=== PATIENT | female | born 2000 | race Caucasian/White ===

== ENCOUNTER 2023-12-07 10:44 | Emergency (ER) | payer OTHER, SELFPAY ==
[2023-12-07 10:49] VITALS: BP 126/89; TEMP 36.5; O2SAT 99; BMI 31.7
--- NOTE | 2023-12-07 11:14 | ED.EAR1 ---
HPI - Ear Problem General Chief complaint: Urogenital-Female Stated complaint: EAR PAIN BOTH Time Seen by Provider: 12/07/23 11:00 Source: patient Mode of arrival: walk-in Limitations: no limitations History of Present Illness HPI Narrative: The patient initially presented with bilateral ear pain and she has been trying multiple [id number] cleaning, she thought that she had a lot of wax but she thinks that she still feels like there is something in her ear and she cannot hear well, she did mention having runny nose a few days before this happened. The patient also want to be tested for STDs since she is in the ER and she does not have any symptoms Related Data Home Medications ?Medication ?Instructions ?Recorded ?Confirmed etonogestrel 0.12 mg-ethinyl vag ring vaginal .qmonth 12/07/23 estradiol 0.015 mg/24 hr vaginal ring Previous Rx's ?Medication ?Instructions ?Recorded amoxicillin 500 mg capsule 500 mg PO Q8H #15 caps 12/07/23 fluconazole 150 mg tablet 150 mg PO ONCE #1 tab 12/07/23 fluticasone propionate 50 1 spray intranasal BID #16 grams 12/07/23 mcg/actuation nasal spray,suspension (Flonase Allergy Relief) loratadine 10 mg tablet (Claritin) 10 mg PO DAILY PRN nasal 12/07/23 congestion #10 tabs Allergies Allergy/AdvReac Type Severity Reaction Status Date / Time Sulfa (Sulfonamide Allergy Hives Verified 12/07/23 10:49 Antibiotics) Review of Systems ROS Status of ROS 10 or more systems reviewed and unremarkable except as noted in history and below Exam Narrative Exam Narrative: Nurses notes and vital signs reviewed and patient is not hypoxic. General: Well-appearing and in no apparent distress. Skin: Warm, dry, no pallor noted. No rash. Head: Normocephalic, atraumatic. Neck: Supple, non-tender. Eye: Pupils are equal, round and EOMI. No scleral icterus. Ears, Nose, Mouth, and Throat: Both tympanic membranes are red with congestion and bulging with a nasal mucosa mildly erythematous ,. Oral mucosa is moist, Cardiovascular: Regular Rate and Rhythm without murmur, gallop or rub. Respiratory: No accessory muscle use or respiratory distress. Lungs are clear to auscultation, no wheezing, rales or rhonchi Chest Wall: no tenderness Back: No midline thoracic or lumbar vertebral tenderness. No CVA tenderness Musculoskeletal: normal ROM, no calf or popliteal tenderness, no lower extremity edema/swelling GI: Abdomen is soft, non-distended. Normal bowel sounds. No masses appreciated. No tenderness to palpation. No rebound, guarding, or rigidity noted. Neurological: A&O x4. No cranial nerve dysfunction observed. No truncal ataxia. Moves all extremities. Sensation intact. Psychiatric: Cooperative and interactive. Normal mood and affect. Constitutional Vital Signs, click to edit/add: Last Vital Signs Temp 97.7 F 12/07/23 10:49 Resp 20 12/07/23 10:49 BP 126/89 12/07/23 10:49 Pulse Ox 99 12/07/23 10:49 O2 Del Method Room Air 12/07/23 10:49 Course Vital Signs Vital signs: Vital Signs Temperature 97.7 F 12/07/23 10:49 Respiratory Rate 20 12/07/23 10:49 Blood Pressure 126/89 12/07/23 10:49 Pulse Oximetry 99 12/07/23 10:49 Oxygen Delivery Method Room Air 12/07/23 10:49 Temperature 97.7 F 12/07/23 10:49 Respiratory Rate 20 12/07/23 10:49 Blood Pressure 126/89 12/07/23 10:49 Pulse Oximetry 99 12/07/23 10:49 Oxygen Delivery Method Room Air 12/07/23 10:49 Medical Decision Making [facility] Narrative Medical decision making narrative: The patient presentation is mostly secondary to otitis media she was treated with a amoxicillin in addition to fluconazole 1 pill to take after the course of the antibiotic just because she have a history of yeast infection after antibiotic use Patient also was given Flonase and Claritin for supportive care and sinusitis treatment The patient does not have any urinary symptoms she will be tested with urine chlamydia and gonorrhea The patient is to follow up with primary care physician in next 2-3 days or to return to the emergency department should any of the signs or symptoms worsen or new symptoms develop. The patient agrees with the following Diagnosis and Treatment plan and the patient will be discharged home. Discharge Plan Discharge Stand Alone Forms: Portal Instructions Chief Complaint: Urogenital-Female Clinical Impression: Possible exposure to STD Otitis media Qualifiers: Otitis media type: serous Chronicity: acute Laterality: bilateral Recurrence: non-recurrent Qualified Code(s): H65.03 - Acute serous otitis media, bilateral Patient Disposition: Home, Self-Care Time of Disposition Decision: 11:14 Condition: Good Prescriptions / Home Meds: New loratadine [Claritin] 10 mg tablet 10 mg PO DAILY PRN (Reason: nasal congestion) Qty: 10 0RF amoxicillin 500 mg capsule 500 mg PO Q8H Qty: 15 0RF fluconazole 150 mg tablet 150 mg PO ONCE Qty: 1 0RF fluticasone propionate [Flonase Allergy Relief] 50 mcg/actuation spray,suspension 1 spray intranasal BID Qty: 16 0RF Rx Instructions: administer into each nostril No Action etonogestrel-ethinyl estradiol 0.12-0.015 mg/24 hr ring VAGINAL .qmonth Print Language: Macedonian Instructions: Ear Infection (ED) Referrals: Farzaneh Hayes MD [Physician] - 1 week Physician,Non-Staff, [Primary Care Provider] - 1 week
[2023-12-09 04:07] LABS: Neisseria gonorrhoeae, NAA Negative (Negative)
== END 2023-12-07 12:33 | disposition home or self-care (01) ==
PROVIDERS: Emergency Provider Emergency Medicine
DX: Z20.2 Contact with and (suspected) exposure to infections with a predominantly sexual mode of transmission (principal); H65.03 Acute serous otitis media, bilateral
CPT/HCPCS: 87491; 87591; 99283